=== PATIENT | female | born 1990 | race Caucasian/White ===

== ENCOUNTER 2018-05-22 21:30 | Emergency (ER) | payer OTHER ==
[2018-05-22] MEDS ORDERED: ONDANSETRON 4 MG/2 ML VIAL IVP ONE (21:51)
[2018-05-22] MEDS ORDERED: NS 1,000 ML IV ONE (21:51)
--- NOTE | 2018-05-22 21:51 | EDPHY ---
H & P Time Seen by Provider: 05/22/18 21:36 HPI/ROS: CHIEF COMPLAINT: Diarrhea, near-syncope HISTORY OF PRESENT ILLNESS: The patient is a 27-year-old female presents emergency department stating"I think I had food poisoning."The patient states she went to [employer] at lunch today. Around 4:30 p.m. She developed diarrhea and then had multiple episodes of nonbloody emesis. She has had an upset stomach since then. Prior to arrival she had a near syncopal episode. She felt lightheaded and faint. Her friends lowered to the ground. She did not sustain trauma. EMS found the patient in talking alert. They gave her normal saline and improved her symptoms. At this time the patient states she has a mildly upset stomach. She has no significant abdominal pain. No headache. No chest pain or shortness of breath. The patient reports she is taking control. Her last menstrual period was 3-4 weeks ago. REVIEW OF SYSTEMS: 10 systems were reveiwed and are negative with the exception of the elements mentioned in the history of present illness. Past Medical/Surgical History: Negative Past surgical history: Negative Smoking Status: Never smoked Physical Exam: Vitals noted GENERAL: Well-appearing, in no acute distress, alert. HEENT: Eyes normal to inspection, normal pharynx, no signs of dehydration. NECK: Normal, supple. RESPIRATORY: Clear to auscultation bilaterally, no rales, rhonchi or wheezing. CVS: Regular rate and rhythm, no rubs, murmurs, or gallops. ABDOMEN: Soft, nontender, nondistended, no organomegaly. Benign BACK: Normal to inspection, no CVA tenderness. SKIN: Normal color, no rash, warm, dry. No pallor. EXTREMITIES: No pedal edema, no calf tenderness, no Homans sign or cords, no joint swelling. NEURO/PSYCH: Alert and oriented, normal mood and affect, normal motor sensory exam. No obvious cranial nerve deficit. Constitutional: Initial Vital Signs Temperature (C) 36.3 C 05/22/18 21:34 Heart Rate 85 05/22/18 21:34 Respiratory Rate 16 05/22/18 21:34 Blood Pressure 100/64 05/22/18 21:34 O2 Sat (%) 98 05/22/18 21:34 O2 Delivery Mode Room Air Allergies/Adverse Reactions: No Known Allergies Allergy (Unverified 05/22/18 21:34) Home Medications: Medication Instructions Recorded NK [No Known Home Meds] 05/22/18 Medical Decision Making ED Course/Re-evaluation: The in the emergency department I discussed possible etiologies with the patient. I answered all her questions. Patient was given a 2nd L of normal saline. She was given Zofran 4 mg IV. EKG shows normal sinus rhythm, normal rate, normal axis, normal intervals. There are no ST or T-wave abnormalities. EKG is normal as interpreted by me. Patient's white count was elevated 15,000. Chemistry panel is unremarkable. is negative. 2250: I rechecked the patient. She states she was feeling better. She had no abdominal pain. She had no further episodes of vomiting in the emergency department. Her repeat exam was benign. The patient was given warnings prior to leaving. She will return with worsening symptoms. She was given Zofran take-home pack. Differential Diagnosis: My differential includes but is not limited to gastroenteritis, food poisoning, small-bowel obstruction, syncope, near syncope, ACS, electrolyte abnormality, sugar abnormality, dysrhythmia, , ectopic , anemia - Data Points Laboratory Results: Laboratory Results 05/22/18 21:50 05/22/18 21:50 05/22/18 05/22/18 05/22/18 21:50 21:50 21:50 WBC 15.97 10^3/uL H 10^3/uL (3.80-9.50) RBC 5.11 10^6/uL 10^6/uL (4.18-5.33) Hgb 16.1 g/dL g/dL (12.6-16.3) Hct 46.8 % % (38.0-47.0) MCV 91.6 fL fL (81.5-99.8) MCH 31.5 pg pg (27.9-34.1) MCHC 34.4 g/dL g/dL (32.4-36.7) RDW 13.4 % % (11.5-15.2) Plt Count 294 10^3/uL 10^3/uL (150-400) MPV 10.9 fL fL (8.7-11.7) Neut % (Auto) 87.5 % H % (39.3-74.2) Lymph % (Auto) 8.0 % L % (15.0-45.0) [place] % (Auto) 3.3 % L % (4.5-13.0) Eos % (Auto) 0.4 % L % (0.6-7.6) Baso % (Auto) 0.3 % % (0.3-1.7) Nucleat RBC Rel Count 0.0 % % (0.0-0.2) Absolute Neuts (auto) 13.98 10^3/uL H 10^3/uL (1.70-6.50) Absolute Lymphs (auto) 1.27 10^3/uL 10^3/uL (1.00-3.00) Absolute Monos (auto) 0.53 10^3/uL 10^3/uL (0.30-0.80) Absolute Eos (auto) 0.07 10^3/uL 10^3/uL (0.03-0.40) Absolute Basos (auto) 0.04 10^3/uL 10^3/uL (0.02-0.10) Absolute Nucleated RBC 0.00 10^3/uL 10^3/uL (0-0.01) Immature Gran % 0.5 % % (0.0-1.1) Immature Gran # 0.08 10^3/uL 10^3/uL (0.00-0.10) Sodium 137 mEq/L mEq/L (135-145) Potassium 3.5 mEq/L mEq/L (3.5-5.2) Chloride 105 mEq/L mEq/L (97-110) Carbon Dioxide 22 mEq/l mEq/l (22-31) Anion Gap 10 mEq/L mEq/L (6-14) BUN 13 mg/dL mg/dL (7-23) Creatinine 0.8 mg/dL mg/dL (0.6-1.0) Estimated GFR > 60 Glucose 89 mg/dL mg/dL (70-100) Calcium 9.4 mg/dL mg/dL (8.5-10.4) Lipase 65 IU/L IU/L (23-300) Beta HCG, Qual NEGATIVE Medications Given: Discontinued Medications Sodium Chloride (Ns) 1,000 mls @ 0 mls/hr IV EDNOW ONE; Wide Open PRN Reason: Protocol Stop: 05/22/18 21:52 Last Admin: 05/22/18 22:03 Dose: 1,000 mls Ondansetron HCl (Zofran) 4 mg IVP EDNOW ONE Stop: 05/22/18 21:52 Last Admin: 05/22/18 22:03 Dose: 4 mg Departure - Departure Disposition: Home, Routine, Self-Care Clinical Impression: Near syncope Vomiting Qualifiers: Vomiting type: unspecified Vomiting Intractability: non-intractable Nausea presence: with nausea Qualified Code(s): R11.2 - Nausea with vomiting, unspecified Diarrhea Qualifiers: Diarrhea type: unspecified type Qualified Code(s): R19.7 - Diarrhea, unspecified Condition: Fair Instructions: Near Syncope (ED), Acute Nausea and Vomiting (ED), Acute Diarrhea (ED) Additional Instructions: Return with increasing abdominal pain, fever, repeat episodes of vomiting or any other concerns. Referrals: Joni Desouza MD [Medical Doctor] - 2-3 days, if not improved
[2018-05-22 22:12] LABS: PLATELET COUNT 294 10^3/uL (150-400)
[2018-05-22] MEDS ORDERED: ONDANSETRON 4MG PREPACK#2 BTL TAKEHOME ONE (22:57)
[2018-05-22 23:13] VITALS: BP 112/78
--- NOTE | 2018-05-22 23:36 | CPEKG ---
Test Reason : OPEN Blood Pressure : / mmHG Vent. Rate : 089 BPM Atrial Rate : 090 BPM P-R Int : 119 ms QRS Dur : 063 ms QT Int : 391 ms P-R-T Axes : -43 071 072 degrees QTc Int : 476 ms Sinus rhythm Borderline prolonged QT interval Confirmed by Ronel Zuniga ([id number]) on 05/22/2018 11:35:42 PM Referred By: Confirmed By:Ronel Zuniga
== END 2018-05-22 23:13 | disposition home or self-care (01) ==
DX: R55 Syncope and collapse (principal); R11.2 Nausea with vomiting, unspecified; R19.7 Diarrhea, unspecified
CPT/HCPCS: 96374; J2405